=== PATIENT | male | born 1960 | race Two or more races ===

== ENCOUNTER → 2017-10-17 | Outpatient (CLI) | payer BC ==
[2017-10-17 13:28] LABS: ANION GAP 13 (5-19); BLOOD UREA NITROGEN 30 mg/dL (7-20); CALCIUM 9.4 mg/dL (8.4-10.2); CARBON DIOXIDE 27 mmol/L (22-30); CHLORIDE 101 mmol/L (98-107); CREATININE RESULT 1.28 mg/dL (0.52-1.25); GLUCOSE 96 mg/dL (75-110); SODIUM 141.3 mmol/L (137-145)
[2017-10-17 13:32] LABS: POTASSIUM 4.5 mmol/L (3.6-5.0)
== END ==
LOC: LAB 12:43
PROVIDERS: ATTEND Physician Assistant
DX: I10 Essential (primary) hypertension (principal)
CPT/HCPCS: 36415; 80048

== ENCOUNTER → 2018-08-11 | Outpatient (CLI) | payer BC ==
--- NOTE | 2018-08-12 14:33 | RADIOLOGY REPORT (SQ) ---
EXAM DESCRIPTION: PET CT SKULL/THIGH COMPLETED DATE/TIME: 08/11/2018 9:51 pm REASON FOR STUDY: R91.1 SOLITARY PULMONARY NODULE N28.89 OTHER SPECIFIED DISORDERS OF KIDNEY AND UR ETER R91.1 SOLITARY PULMONARY NODULE COMPARISON: Report from CT abdomen and pelvis 07/28/2018 RADIONUCLIDE AND DOSE: 11.5 mCi F18 FDG The route of agent administration: Intravenous FASTING BLOOD SUGAR: 91 mg/dl CONTRAST TYPE AND DOSE: No CT contrast given. TECHNIQUE: Blood glucose level was verified. Above dose of FDG was injected intravenously. 2-D seg mented attenuation correction images were obtained from the base of the skull to the midthighs. Nonc ontrast CT images were obtained for attenuation correction and fusion with emission images. CT image s were performed without oral or intravenous contrast and are not sensitive for parenchymal lesions. A series of overlapping emission PET images were obtained. Images reviewed and manipulated at [facility] work station by the radiologist. Images stored on PACS. LIMITATIONS: None. FINDINGS: HEAD AND NECK: No areas of abnormal metabolic activity in the soft tissues of the head and neck. CHEST: A 1.6 x 1.3 cm nodule is present the right lung base on axial image 104. This has SUV of 1.5 which is just above blood pool activity. This lesion should be considered positive for metabolic act ivity by PET-CT. Consider CT-guided biopsy for followup ABDOMEN AND PELVIS: The 1.4 cm hemorrhagic cyst is present in the left upper pole kidney with SUV of 1.0. This is below blood pool activity and this lesion should be considered non metabolic PROXIMAL LOWER EXTREMITIES: No areas of abnormal metabolic activity in the soft tissues of the lower extremities. BONES: No abnormal metabolic activity in the visualized skeleton. ADDITIONAL CT FINDINGS: No additional significant findings on the noncontrast CT images. OTHER: Liver background activity 2.2 SUV. Blood pool background activity 1.4 SUV IMPRESSION: 1.6 x 1.3 cm right lower lobe nodule demonstrates metabolic activity Hemorrhagic cyst left upper pole kidney is non metabolic TECHNICAL DOCUMENTATION: JOB ID: [id number]- All Rights Reserved Reading location - IP/workstation name: [facility]-[email or web address]
== END ==
LOC: RAD 19:05
PROVIDERS: ATTEND Internal Medicine Hematology & Oncology
DX: R91.1 Solitary pulmonary nodule (principal); J98.4 Other disorders of lung; N28.1 Cyst of kidney, acquired
CPT/HCPCS: 78815; A9552

== ENCOUNTER 2018-08-25 08:51 | Day surgery (SDC) | payer BC ==
[2018-08-25 10:05] LABS: PROTHROMBIN TIME 12.6 SEC (11.4-15.4)
[2018-08-25 10:16] LABS: HEMATOCRIT 48.4 % (37.9-51.0); MEAN CORPUSCULAR HEMOGLOBIN 26.5 pg (27.0-33.4); MEAN CORPUSCULAR VOLUME 80 fl (80-97); PLATELET COUNT 276 10^3/uL (150-450); RED BLOOD COUNT 6.03 10^6/uL (4.35-5.55); RED CELL DISTRIBUTION WIDTH 14.2 % (11.5-14.0)
[2018-08-25 10:23] LABS: BLOOD UREA NITROGEN 27 mg/dL (7-20)
[2018-08-25] MEDS ORDERED: FENTANYL CITRATE INJ/PF 100 MCG/2 ML AMPUL ONE (11:30)
[2018-08-25] MEDS ORDERED: LIDOCAINE 1% INJ-PF (10 MG/ML) 30 ML SDV ONE (11:30)
[2018-08-25] MEDS ORDERED: MIDAZOLAM 2 MG/2 ML INJ ONE (11:30)
--- NOTE | 2018-08-25 12:47 | RADIOLOGY REPORT (SQ) ---
EXAM DESCRIPTION: CHEST SINGLE VIEW COMPLETED DATE/TIME: 08/25/2018 12:33 pm REASON FOR STUDY: POST LUNG BOPSY COMPARISON: TWO-VIEW CHEST 01/30/2009 PET-CT 08/11/2018 EXAM PARAMETERS: NUMBER OF VIEWS: One view. TECHNIQUE: Single frontal radiographic view of the chest acquired. RADIATION DOSE: NA LIMITATIONS: None. FINDINGS: LUNGS AND PLEURA: Film obtained immediately post right lower lobe lung nodule biopsy. 15 mm Nodule is faintly visualized at the right cardiophrenic angle. Trace right apical pneumothorax post lung biopsy. Left lung clear. No left pneumothorax. No right or left pleural effusion. MEDIASTINUM AND HILAR STRUCTURES: No masses. Contour normal. HEART AND VASCULAR STRUCTURES: Heart normal in size. Normal vasculature. BONES: No acute findings. HARDWARE: None in the chest. OTHER: No other significant finding. IMPRESSION: Trace right apical pneumothorax immediate post right lower lobe CT-guided lung biopsy TECHNICAL DOCUMENTATION: JOB ID: [id number] [employer]- All Rights Reserved Reading location - IP/workstation name: [facility]-RR
--- NOTE | 2018-08-25 13:17 | RADIOLOGY REPORT (SQ) ---
EXAM DESCRIPTION: CT BIOPSY LUNG/MEDIASTINUM; CT NEEDLE PLACEMENT COMPLETED DATE/TIME: 08/25/2018 12:58 pm REASON FOR STUDY: SOLITARY PULMONARY NODULE; SOLITARY PULMONARY NODULE, LUNG BIOPSY R91.1 SOLITARY PULMONARY NODULE COMPARISON: PET-CT 08/11/2018 TECHNIQUE: CT guided biopsy of the right lower lobe nodule performed with conscious sedation. CT Fluoroscopy Time: 12.[address] scanners at this facility use dose modulation, iterative reconstruction, and/or weight based d osing when appropriate to reduce radiation dose to as low as reasonably achievable (ALARA). [facility]: Dose Right [facility]: CareDose [facility]: Dose Right [facility]: Teradose 4D [facility]: Anevia RADIATION DOSE: 117mGy. FINDINGS: After obtaining informed consent and explaining the risks and benefits of conscious sedati on,the patient agreed to the procedure. Prior to the procedure, a time out was performed to verify th e patient's identity and planned procedure. IV sedation was administered and physician direction by the registered nurse using 1 milligrams of Ve rsed and 25 micrograms of fentanyl, for conscious sedation. Physiologic monitoring was provided befor e, during, and after sedation. The total sedation time was 30 minutes. Documentation face to face time, the performing proceduralist, spent monitoring the patient: [address] scanning was performed to localize the percutaneous site for the biopsy approach. After sterile skin prep and local lidocaine for skin and deep tissue anesthesia, a coaxial biopsy nee dle was used to obtain multiple cores of tissue. The biopsy tract was embolized with a [employer] clos ure device, and a trace basilar pneumothorax was aspirated as the needle was withdrawn. Trace right apical pneumothorax on the post biopsy chest film dictated separately. The biopsy tissue was submitte d to the lab in formalin. Pathology is pending at the time of dictation. IMPRESSION: CT GUIDED BIOPSY OF THE RIGHT LOWER LOBE NODULE PERFORMED WITH TRACE ASYMPTOMATIC POSTPR OCEDURE RIGHT PNEUMOTHORAX. PATHOLOGY PENDING. COMMENT: Quality ID 145: Final reports for procedures using fluoroscopy that document radiation exp osure indices, or exposure time and number of fluorographic images (if radiation exposure indices are not available) Patient medication list reviewed: Yes- Quality ID# [id number]:Eligible professional attests to documenting i n the medical record they obtained, updated, or reviewed the patient's current medications.. TECHNICAL DOCUMENTATION: JOB ID: [id number] Quality ID# 436: Final reports with documentation of one or more dose reduction techniques (e.g., Aut omated exposure control, adjustment of the mA and/or kV according to patient size, use of iterative r econstruction technique) 2010 [employer]- All Rights Reserved Reading location - IP/workstation name: [email or web address]
--- NOTE | 2018-08-25 13:17 | RADIOLOGY REPORT (SQ) ---
EXAM DESCRIPTION: CT BIOPSY LUNG/MEDIASTINUM; CT NEEDLE PLACEMENT COMPLETED DATE/TIME: 08/25/2018 12:58 pm REASON FOR STUDY: SOLITARY PULMONARY NODULE; SOLITARY PULMONARY NODULE, LUNG BIOPSY R91.1 SOLITARY PULMONARY NODULE COMPARISON: PET-CT 08/11/2018 TECHNIQUE: CT guided biopsy of the right lower lobe nodule performed with conscious sedation. CT Fluoroscopy Time: 12.[address] scanners at this facility use dose modulation, iterative reconstruction, and/or weight based d osing when appropriate to reduce radiation dose to as low as reasonably achievable (ALARA). [facility]: Dose Right [facility]: CareDose [facility]: Dose Right [facility]: Teradose 4D [facility]: [employer] RADIATION DOSE: 117mGy. FINDINGS: After obtaining informed consent and explaining the risks and benefits of conscious sedati on,the patient agreed to the procedure. Prior to the procedure, a time out was performed to verify th e patient's identity and planned procedure. IV sedation was administered and physician direction by the registered nurse using 1 milligrams of Ve rsed and 25 micrograms of fentanyl, for conscious sedation. Physiologic monitoring was provided befor e, during, and after sedation. The total sedation time was 30 minutes. Documentation face to face time, the performing proceduralist, spent monitoring the patient: [address] scanning was performed to localize the percutaneous site for the biopsy approach. After sterile skin prep and local lidocaine for skin and deep tissue anesthesia, a coaxial biopsy nee dle was used to obtain multiple cores of tissue. The biopsy tract was embolized with a [employer] clos ure device, and a trace basilar pneumothorax was aspirated as the needle was withdrawn. Trace right apical pneumothorax on the post biopsy chest film dictated separately. The biopsy tissue was submitte d to the lab in formalin. Pathology is pending at the time of dictation. IMPRESSION: CT GUIDED BIOPSY OF THE RIGHT LOWER LOBE NODULE PERFORMED WITH TRACE ASYMPTOMATIC POSTPR OCEDURE RIGHT PNEUMOTHORAX. PATHOLOGY PENDING. COMMENT: Quality ID 145: Final reports for procedures using fluoroscopy that document radiation exp osure indices, or exposure time and number of fluorographic images (if radiation exposure indices are not available) Patient medication list reviewed: Yes- Quality ID# [id number]:Eligible professional attests to documenting i n the medical record they obtained, updated, or reviewed the patient's current medications.. TECHNICAL DOCUMENTATION: JOB ID: [id number] Quality ID# 436: Final reports with documentation of one or more dose reduction techniques (e.g., Aut omated exposure control, adjustment of the mA and/or kV according to patient size, use of iterative r econstruction technique) 2010 [employer]- All Rights Reserved Reading location - IP/workstation name: [facility]-[email or web address]
--- NOTE | 2018-08-25 14:34 | RADIOLOGY REPORT (SQ) ---
EXAM DESCRIPTION: CHEST SINGLE VIEW COMPLETED DATE/TIME: 08/25/2018 2:24 pm REASON FOR STUDY: POST LUNG BOPSY, *2 HOUR FILM* COMPARISON: 08/25/2018, 1232 hours EXAM PARAMETERS: NUMBER OF VIEWS: One view. TECHNIQUE: Single frontal radiographic view of the chest acquired. RADIATION DOSE: NA LIMITATIONS: None. FINDINGS: LUNGS AND PLEURA: Trace right apical pneumothorax seen on the immediate post lung biopsy f ilm is near completely resolved. Patient is asymptomatic. Previously biopsied Nodule in the medial right lung base is faintly visualized, marked with a coquille. Left lung and pleural space unremarkable. MEDIASTINUM AND HILAR STRUCTURES: No masses. Contour normal. HEART AND VASCULAR STRUCTURES: Heart normal in size. Normal vasculature. BONES: No acute findings. HARDWARE: None in the chest. OTHER: No other significant finding. IMPRESSION: Trace right apical pneumothorax, smaller than on films 08/25/2018 1232 hours. Patient i s asymptomatic. TECHNICAL DOCUMENTATION: JOB ID: [id number] [employer]- All Rights Reserved Reading location - IP/workstation name: [facility]-[email or web address]
[2018-08-25 16:37] VITALS: BP 107/73
== END 2018-08-25 14:50 | disposition home or self-care (01) ==
LOC: RAD 08:51
PROVIDERS: ATTEND Internal Medicine Hematology & Oncology
DX: C7A.090 Malignant carcinoid tumor of the bronchus and lung (principal); R91.1 Solitary pulmonary nodule; N28.89 Other specified disorders of kidney and ureter; K76.0 Fatty (change of) liver, not elsewhere classified; E78.5 Hyperlipidemia, unspecified; I10 Essential (primary) hypertension; Z79.82 Long term (current) use of aspirin; Z79.899 Other long term (current) drug therapy; Z88.1 Allergy status to other antibiotic agents
CPT/HCPCS: 36415; 84520; 82565; 85027; 85610; 85730; 88342 ×2; 88341 ×2; 88305 ×2; 71045; 77012; 32405; J2250; J3010; J3490

== ENCOUNTER → 2018-09-11 | Outpatient (CLI) | payer BC ==
--- NOTE | 2018-09-11 13:28 | RADIOLOGY REPORT (SQ) ---
EXAM DESCRIPTION: CT CHEST WITH COMPLETED DATE/TIME: 09/11/2018 12:57 pm REASON FOR STUDY: LUNG MASS (R91.8), LUNG NODULE (R91.1) R91.8 OTHER NONSPECIFIC ABNORMAL FINDING O F LUNG FIELD COMPARISON: CT-guided biopsy, 08/25/2018 TECHNIQUE: CT scan of the chest performed using helical scanning technique with dynamic intravenous contrast injection. Images reviewed with lung, soft tissue and bone windows. Reconstructed coronal and sagittal MPR and MIP images reviewed. All images stored on PACS. All CT scanners at this facility use dose modulation, iterative reconstruction, and/or weight based d osing when appropriate to reduce radiation dose to as low as reasonably achievable (ALARA). [facility]: Dose Right [facility]: CareDose [facility]: Dose Right [facility]: Teradose 4D [facility]: [employer] CONTRAST TYPE AND DOSE: contrast/concentration: Isovue 350.00 mg/ml; Total Contrast Delivered: 80.0 ml; Total Saline Delivered: 55.0 ml RENAL FUNCTION: GFR > 60. RADIATION DOSE: CT Rad equipment meets quality standard of care and radiation dose reduction techniq ues were employed. CTDIvol: 10.7 mGy. DLP: 448 mGy-cm. . LIMITATIONS: None. FINDINGS: LUNGS AND PLEURA: There is a redemonstrated 1.7 cm lobulated nodule of the right lower lob e with associated post biopsy changes of the overlying lung tissue, in keeping with recent CT guided biopsy. Interval resolution of previously seen tiny postprocedural pneumothorax. No pleural effusio n. No new pulmonary nodules are identified. HILAR AND MEDIASTINAL STRUCTURES: No identified masses or abnormal nodes. HEART AND VASCULAR STRUCTURES: No aneurysm or dissection. No central pulmonary emboli. No pericardi al effusion. HARDWARE: None in the chest. UPPER ABDOMEN: No significant findings. Limited exam. THYROID AND OTHER SOFT TISSUES: No masses. No adenopathy. BONES: No significant finding. OTHER: No other significant finding. IMPRESSION: There is a redemonstrated 1.7 cm lobulated nodule of the right lower lobe with associate d post biopsy changes of the overlying lung tissue, in keeping with recent CT guided biopsy. Interva l resolution of previously seen tiny postprocedural pneumothorax. No pleural effusion. No new pulmo nary nodules are identified. TECHNICAL DOCUMENTATION: JOB ID: [id number] Quality ID # 436: Final reports with documentation of one or more dose reduction techniques (e.g., Au tomated exposure control, adjustment of the mA and/or kV according to patient size, use of iterative reconstruction technique) 2010 [employer]- All Rights Reserved Reading location - IP/workstation name: [email or web address]
== END ==
LOC: RAD 12:30
PROVIDERS: ATTEND Surgery
DX: R91.1 Solitary pulmonary nodule (principal); R91.8 Other nonspecific abnormal finding of lung field
CPT/HCPCS: 71260

== ENCOUNTER → 2018-09-23 | Outpatient (CLI) | payer BC ==
[~2018-09-23] MED LIST: REGADENOSON INJ 0.4 MG/5 ML DISP.SYRIN IV ONE
--- NOTE | 2018-09-23 13:38 | XCELERA REPORT ---
[address] [address] Transthoracic Echocardiogram Report Name: JERMAINE CABRERA Age: 58 yrs Gender: Male : 1960 Patient Status: Outpatient Patient Location: RAD Study Date: 09/23/2018 10:41 AM Height: 73 in Weight: 195 lb BSA: 2.1 m2 Procedure: A two-dimensional transthoracic echocardiogram with color flow and Doppler was performed. Study Quality: Good. Reason For Study: TACHYCARDIA History: TACHYCARDIA / Pre-op. Ordering Physician: JOSSELIN KOCH Performed By: Pia Gibson Interpretation Summary The left ventricle is normal in size. There is normal left ventricular wall thickness. LV EF is > than 65% Left ventricular systolic function is normal. Doppler measurements suggest impaired left ventricular relaxation, which is associated with grade I/IV or mild diastolic dysfunction The left ventricular wall motion is normal. There is no thrombus. There is no ventricular septal defect visualized. The right ventricle is normal in size and function. The right atrium is normal. The left atrial size is normal. The interatrial septum is intact with no evidence for an atrial septal defect. There is no evidence of mitral valve prolapse. There is no vegetation seen on the mitral valve. Calcified tip of anterior mitral valve leaflet. There is no mitral valve stenosis. There is a trace amount of mitral regurgitation The aortic valve is trileaflet. The aortic valve opens well. There is no aortic valve stenosis There is no LVOT obstruction. No aortic regurgitation is present. There is no tricuspid stenosis. There is a trace amount of tricuspid regurgitation There is mild pulmonary hypertension by echo RVSP is 29 to 34 mm of Hg , with RA mean of 5 to 10. There is no pulmonic valvular stenosis. There is a trace amount of pulmonic regurgitation The aortic root is normal size. The inferior vena cava appeared normal and decreased > 50% with respiration (RAP 5-10 mmHg) There is no pericardial effusion. MMode/2D Measurements & Calculations RVDd: 3.2 cm LVIDd: 4.4 cm FS: 38.8 % Ao root diam: 2.9 cm IVSd: 1.0 cm LVIDs: 2.7 cm EDV(Teich): 89.1 ml Ao root area: 6.4 cm2 LVPWd: 1.0 cm ESV(Teich): 27.3 ml LA dimension: 3.3 cm EF(Teich): 69.4 % Doppler Measurements & Calculations MV E max tim: MV P1/2t max tim: Ao V2 max: LV V1 max P.5 cm/sec 74.0 cm/sec 117.8 cm/sec 4.3 mmHg MV A max tim: MV P1/2t: 96.9 msec Ao max PG: LV V1 max: 91.4 cm/sec MVA(P1/2t): 2.3 cm2 5.6 mmHg 104.1 cm/sec MV E/A: 0.79 MV dec slope: 223.7 cm/sec2 MV dec time: 0.34 sec PA V2 max: PI end-d tim: TR max tim: MV P1/2t-pr_phl: 77.0 cm/sec 129.2 cm/sec 245.7 cm/sec 96.9 msec PA max PG: TR max P.4 mmHg 24.1 mmHg Left Ventricle The left ventricle is normal in size. There is normal left ventricular wall thickness. LV EF is > than 65%. Left ventricular systolic function is normal. Doppler measurements suggest impaired left ventricular relaxation, which is associated with grade I/IV or mild diastolic dysfunction. The left ventricular wall motion is normal. There is no thrombus. There is no ventricular septal defect visualized. Right Ventricle The right ventricle is normal in size and function. Atria The right atrium is normal. The left atrial size is normal. The interatrial septum is intact with no evidence for an atrial septal defect. Mitral Valve There is no evidence of mitral valve prolapse. There is no vegetation seen on the mitral valve. Calcified tip of anterior mitral valve leaflet. There is no mitral valve stenosis. There is a trace amount of mitral regurgitation. Aortic Valve The aortic valve is trileaflet. The aortic valve opens well. There is no aortic valvular vegetation. There is no aortic valve stenosis. There is no LVOT obstruction. No aortic regurgitation is present. Tricuspid Valve There is no tricuspid stenosis. There is a trace amount of tricuspid regurgitation. There is mild pulmonary hypertension by echo. RVSP is 29 to 34 mm of Hg , with RA mean of 5 to 10. Pulmonic Valve There is no pulmonic valvular stenosis. There is a trace amount of pulmonic regurgitation. Great Vessels The aortic root is normal size. The inferior vena cava appeared normal and decreased > 50% with respiration (RAP 5-10 mmHg). Effusions There is no pericardial effusion. : JOSSELIN KOCH > Meri Sailnas
--- NOTE | 2018-09-23 15:17 | DRAGON STRESS TEST REPORT ---
Intravenous Lexiscan Cardiolite stress test using single photon emmision computerized tomography. Date of procedure: 09/23/2018 Ordering Provider: Dr. Kali Cortez.([facility] CT Surgery) patient's status: Out Patient. Indication: Tachycardia and preoperative cardiac risk assessment.. Coronary risk factors: Age, hype hypertension, and dyslipidemia. Resting EKG: Sinus Rhythm. Poor R wave progression in the precordial leads. Stress EKG: No changes of ischemia. The patient no chest pain or discomfort, and there were no arrhythmias seen. Reason for termination: Protocol. Conclusions: Normal EKG and hemodynamic response to IV Lexiscan. Nuclear data: At rest the patient was given 13.82 millicuries of technetium 99m sestamibi injected intravenously. As per protocol rest non gated SPECT images were obtained. Subsequently the patient was given intravenous Lexiscan at a dose of 0.4 mg in 5 mL intravenously, followed by flush with normal saline. Subsequently the stress dose of 39.7 millicuries of technetium 99m sestamibi was injected intravenously. As per protocol stress gated images were obtained. Nuclear interpretation: Review of images showed that all segments of the myocardium had normal perfusion at rest, and normal perfusion post stress with IV Lexiscan. All segments of the myocardium had normal motion, contraction, and thickening by gated study. T. I D. ratio was normal at 1.16. Computer read rest, and stress left ventricular ejection fraction were 58 %, and 54 %, respectively. Visually both the stress and rest ejection fractions were normal, and greater than 55%. Conclusion: 1. There is no scintigraphic evidence of Lexiscan induced myocardial ischemia. 2. There is no scintigraphic evidence of myocardial infarction/scar. Recommendations: 1. Correlate clinically. 2. Aggressive risk factor modification, and treating the underlying co- morbidities. [facility]
== END ==
LOC: RAD 08:16
PROVIDERS: ATTEND Surgery
DX: Z01.810 Encounter for preprocedural cardiovascular examination (principal); R00.0 Tachycardia, unspecified; R91.8 Other nonspecific abnormal finding of lung field; I10 Essential (primary) hypertension; E78.5 Hyperlipidemia, unspecified
CPT/HCPCS: 93306; 93017; 78452; A9500; J2785; Q9969

== ENCOUNTER → 2020-05-08 | Outpatient (CLI) | payer BC ==
--- NOTE | 2020-05-08 16:50 | RADIOLOGY REPORT (SQ) ---
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 Images reviewed with lung, soft tissue and bone windows. Reconstructed coronal and sagittal MPR and MIP images reviewed. All images stored on PACS. All CT scanners at this facility use dose modulation, iterative reconstruction, and/or weight based d osing when appropriate to reduce radiation dose to as low as reasonably achievable (ALARA). [facility]: Dose Right [facility]: CareDose [facility]: Dose Right [facility]: Teradose 4D [facility]: [employer] CONTRAST TYPE AND DOSE: contrast/concentration: Isovue 350.00 mmol/ml; Total Contrast Delivered: 80. 0 ml; Total Saline Delivered: 55.0 ml RENAL FUNCTION: GFR > 60. RADIATION DOSE: CT Rad equipment meets quality standard of care and radiation dose reduction techniq ues were employed. CTDIvol: 10.9 mGy. DLP: 513 mGy-cm. . LIMITATIONS: None. FINDINGS: LUNGS AND PLEURA: Since last year's study, patient has undergone right lower lobectomy. N o lung lesions on today's study. No pleural disease. HILAR AND MEDIASTINAL STRUCTURES: Small hiatal hernia. No suspicious or enlarged nodes. HEART AND VASCULAR STRUCTURES: No aneurysm or dissection. No central pulmonary emboli. No pericardi al effusion. HARDWARE: None in the chest. UPPER ABDOMEN: No significant findings. Limited exam. THYROID AND OTHER SOFT TISSUES: No masses. No adenopathy. BONES: No significant finding. OTHER: No other significant finding. IMPRESSION: 1. No lung lesions appreciated today. Postoperative changes now noted. TECHNICAL DOCUMENTATION: JOB ID: [id number] Quality ID # [id number]: Final reports with documentation of one or more dose reduction techniques (e.g., Au tomated exposure control, adjustment of the mA and/or kV according to patient size, use of iterative reconstruction technique) 2010 [employer]- All Rights Reserved Reading location - IP/workstation name: [email or web address]
== END ==
LOC: RAD 14:37
PROVIDERS: ATTEND Surgery
DX: D3A.090 Benign carcinoid tumor of the bronchus and lung (principal)
CPT/HCPCS: 71260; 82565